=== PATIENT | female | born 1965 | race Caucasian/White ===

== ENCOUNTER → 2021-09-05 | Outpatient (CLI) | payer OTHER | END | disposition home or self-care (01) | LOC: LABWHC1 16:23 | PROVIDERS: ATTEND Family Medicine | DX: Z20.822 Contact with and (suspected) exposure to COVID-19 (principal) | CPT/HCPCS: U0003; C9803; U0005 ==

== ENCOUNTER 2022-05-09 16:54 | Emergency (ER) | payer OTHER ==
[2022-05-09 17:58] LABS: Basophils # (A) 0.1 k/uL (0-0.2); Basophils % (A) 1 %; Eosinophils # (A) 0.1 k/uL (0-0.7); Eosinophils % (A) 1 %; HCT 43.1 % (34.0-46.0); HGB 14.4 gm/dL (11.4-16.0); Lymphocytes # (A) 0.9 k/uL (1.0-4.8); Lymphocytes % (A) 9 %; MCH 34.2 pg (25.0-35.0); MCHC 33.4 g/dL (31.0-37.0); MCV 102.6 fL (80.0-100.0); Macrocytosis Slight; Mean Platelet Volume 8.1; Monocytes # (A) 0.3 k/uL (0-1.0); Monocytes % (A) 4 %; Neutrophils # (A) 7.7 k/uL (1.3-7.7); Neutrophils % (A) 85 %; Platelet Count 136 k/uL (150-450); RBC 4.19 m/uL (3.80-5.40); RDW 12.4 % (11.5-15.5); WBC 9.1 k/uL (3.8-10.6)
[2022-05-09 18:15] LABS: Prothrombin Time 10.7 sec (9.0-12.0)
[2022-05-09 18:16] LABS: Partial Thromboplastin Time 21.3 sec (22.0-30.0)
[2022-05-09 18:20] VITALS: BP 132/96; PULSE 123; RESP 18; TEMP 98.2
[2022-05-09 18:22] LABS: ALT 14 U/L (4-34); AST 25 U/L (14-36); Acetaminophen <10.0 ug/mL; African American GFR (CKD) >90 (>60 ml/min/1.73 sqM); Albumin 4.2 g/dL (3.5-5.0); Alcohol <10 mg/dL; Alkaline Phosphatase 97 U/L (38-126); Anion Gap 7 mmol/L; Blood Urea Nitrogen 9 mg/dL (7-17); Calcium 8.7 mg/dL (8.4-10.2); Carbon Dioxide 29 mmol/L (22-30); Chloride 96 mmol/L (98-107); Glucose 158 mg/dL (74-99); Non-African American GFR(CKD) >90 (>60 ml/min/1.73 sqM); Potassium 3.5 mmol/L (3.5-5.1); Salicylate <1.0 mg/dL; Sodium 132 mmol/L (137-145); Total Bilirubin 0.9 mg/dL (0.2-1.3)
--- NOTE | 2022-05-09 19:10 | ED ---
Altered Mental Status HPI - General Chief Complaint: Altered Mental Status Stated Complaint: AMS/Seizure Time Seen by Provider: 05/09/22 17:00 Source: patient, family Mode of arrival: EMS Limitations: no limitations - History of Present Illness Initial Comments: 57-year-old female with unknown past medical history presents to the emergency department after she had a seizure at home. Family is at bedside and helps provide history. Patient states that she has a long-standing history of seizures however has never told her children. Children state that they were never aware. They feel that she has become more confused over the past week and today with a witnessed her having 3 seizures. Patient was extremely agitated on scene and did not want to come to the hospital. Patient states that she does not want any life prolonging measures and is a DO NOT RESUSCITATE. She denies any recent illnesses. Patient is alert and oriented 3 however does have some tangential speech. No lateralizing deficits. Remainder of the HPI is limited because the patient's mental condition - Related Data Home Medications Medication Instructions Recorded Confirmed Albuterol Sulfate [Proair Hfa] 2 puff INHALATION RT-Q4H PRN 05/09/22 05/12/22 Atorvastatin [Lipitor] 10 mg PO DAILY 05/09/22 05/12/22 Budesonide 0.5 mg INHALATION RT-BID 05/09/22 05/12/22 Butalbital/Acetaminophen 1 tab PO Q4H PRN 05/09/22 05/12/22 [Butalbital/Acetaminophen 25-325] Ergocalciferol [Vitamin D2 (1250 1,250 mcg PO Q7D 05/09/22 05/12/22 Mcg = 93365 Iu)] Gabapentin 800 mg PO Q8H 05/09/22 05/12/22 LORazepam [Ativan] 2 mg PO Q4H PRN 05/09/22 05/12/22 Lipase/Protease/Amylase [Zenpep Dr 2 cap PO BID PRN 05/09/22 05/12/22 40,000 Unit Capsule] Lipase/Protease/Amylase [Zenpep Dr 2 cap PO TID-W/MEALS 05/09/22 05/12/22 40,000 Unit Capsule] Morphine Sulfate Ir [MSIR] 30 mg PO Q4HR 05/09/22 05/12/22 Morphine Sulfate [Morphine Sulfate 200 mg PO Q12H 05/09/22 05/12/22 ER] Ondansetron Odt [Zofran ODT] 4 mg PO Q4H PRN 05/09/22 05/12/22 Previous Rx's Medication Instructions Recorded Divalproex [Depakote] 500 mg PO BID 30 Days #30 tab 05/16/22 Escitalopram [Lexapro] 10 mg PO DAILY 30 Days #30 tab 05/16/22 Mirtazapine [Remeron] 15 mg PO HS 30 Days #30 tab 05/16/22 Multivitamins, Thera [Multivitamin 1 each PO DAILY@1200 tab 05/16/22 (formulary)] Potassium Chloride ER [K-Dur 20] 40 meq PO DAILY 30 Days #30 tab 05/16/22 Thiamine [Vitamin B-1] 100 mg PO DAILY@1200 tab 05/16/22 Allergies Allergy/AdvReac Type Severity Reaction Status Date / Time Iodinated Contrast Media Allergy Unknown Verified 05/12/22 15:29 duloxetine [From Cymbalta] AdvReac homicidal Verified 05/13/22 12:18 fluticasone furoate AdvReac Swelling Verified 05/13/22 12:18 [From Breo Ellipta] NSAIDS (Non-Steroidal AdvReac Nausea & Verified 05/13/22 12:18 Anti-Inflamma Vomiting tiotropium AdvReac Swelling Verified 05/13/22 12:18 [From Spiriva with HandiHaler] trazodone AdvReac HOMICIDAL Verified 05/13/22 12:18 vilanterol AdvReac Swelling Verified 05/13/22 12:18 [From Breo Ellipta] antidepresents Allergy Unknown Uncoded 05/12/22 14:56 Review of Systems ROS Statement: Those systems with pertinent positive or pertinent negative responses have been documented in the HPI. ROS Other: All systems not noted in ROS Statement are negative. General Exam Limitations: altered mental status General appearance: alert, in no apparent distress, anxious, other (odd behavior) Head exam: Present: atraumatic, normocephalic, normal inspection Eye exam: Present: normal appearance, PERRL, EOMI. Absent: scleral icterus, conjunctival injection, periorbital swelling ENT exam: Present: normal exam, mucous membranes moist Neck exam: Present: normal inspection. Absent: tenderness, meningismus, lymphadenopathy Respiratory exam: Present: normal lung sounds bilaterally. Absent: respiratory distress, wheezes, rales, rhonchi, stridor Cardiovascular Exam: Present: normal rhythm, tachycardia GI/Abdominal exam: Present: soft, normal bowel sounds. Absent: distended, tenderness, guarding, rebound, rigid Neurological exam: Present: alert, oriented X3 Psychiatric exam: Present: anxious, other (tangential speech. hyperverbal) Skin exam: Present: warm, dry, intact, normal color. Absent: rash Course Vital Signs 05/09/22 18:16 Temperature 98.2 F Pulse Rate 123 H Respiratory 18 Rate Blood Pressure 132/96 O2 Sat by Pulse 96 Oximetry Medical Decision Making - Medical Decision Making Upon arrival the patient was placed into room 9. Thorough history and physical exam was performed. I do have several of the patient's family members in the room and I do get a history from all of them. I do begin working the patient up. IV is established laboratory studies are conducted and reviewed. I did request a urine sample however the patient does not provide one. I recommended a CT of the head and neck as well as a chest x-ray. Patient refused these studies as well. Family is at bedside. Oldest daughter states that she does help her mother make medical decisions as she is the next of kin. She agrees with her mother that she does not want any medical treatment at this time and is aware of the risks of possible . Family is aware that the patient will sign out AGAINST MEDICAL ADVICE. Request that she follow up with her own primary care doctor and return for any new or worsening symptoms. Patient discharged home in stable condition - Lab Data Result diagrams: 05/09/22 17:46 05/09/22 17:46 Lab Results 05/09/22 05/09/22 05/09/22 Range/Units 17:46 17:46 17:46 WBC 9.1 (3.8-10.6) k/uL RBC 4.19 (3.80-5.40) m/uL Hgb 14.4 (11.4-16.0) gm/dL Hct 43.1 (34.0-46.0) % MCV 102.6 H (80.0-100.0) fL MCH 34.2 (25.0-35.0) pg MCHC 33.4 (31.0-37.0) g/dL RDW 12.4 (11.5-15.5) % Plt Count 136 L (150-450) k/uL MPV 8.1 Neutrophils % 85 % Lymphocytes % 9 % Monocytes % 4 % Eosinophils % 1 % Basophils % 1 % Neutrophils # 7.7 (1.3-7.7) k/uL Lymphocytes # 0.9 L (1.0-4.8) k/uL Monocytes # 0.3 (0-1.0) k/uL Eosinophils # 0.1 (0-0.7) k/uL Basophils # 0.1 (0-0.2) k/uL Macrocytosis Slight PT 10.7 (9.0-12.0) sec INR 1.0 (<1.2) APTT 21.3 L (22.0-30.0) sec Sodium 132 L (137-145) mmol/L Potassium 3.5 (3.5-5.1) mmol/L Chloride 96 L (98-107) mmol/L Carbon Dioxide 29 (22-30) mmol/L Anion Gap 7 mmol/L BUN 9 (7-17) mg/dL Creatinine 0.33 L (0.52-1.04) mg/dL Est GFR (CKD-EPI)AfAm >90 (>60 ml/min/1.73 sqM) Est GFR (CKD-EPI)NonAf >90 (>60 ml/min/1.73 sqM) Glucose 158 H (74-99) mg/dL Calcium 8.7 (8.4-10.2) mg/dL Total Bilirubin 0.9 (0.2-1.3) mg/dL AST 25 (14-36) U/L ALT 14 (4-34) U/L Alkaline Phosphatase 97 (38-126) U/L Ammonia (<30) umol/L Troponin I (0.000-0.034) ng/mL Total Protein 7.0 (6.3-8.2) g/dL Albumin 4.2 (3.5-5.0) g/dL TSH 0.354 L (0.465-4.680) mIU/L Free T4 2.06 (0.78-2.19) ng/dL Salicylates <1.0 mg/dL Acetaminophen <10.0 ug/mL Serum Alcohol <10 mg/dL 05/09/22 05/09/22 Range/Units 17:46 17:46 WBC (3.8-10.6) k/uL RBC (3.80-5.40) m/uL Hgb (11.4-16.0) gm/dL Hct (34.0-46.0) % MCV (80.0-100.0) fL MCH (25.0-35.0) pg MCHC (31.0-37.0) g/dL RDW (11.5-15.5) % Plt Count (150-450) k/uL MPV Neutrophils % % Lymphocytes % % Monocytes % % Eosinophils % % Basophils % % Neutrophils # (1.3-7.7) k/uL Lymphocytes # (1.0-4.8) k/uL Monocytes # (0-1.0) k/uL Eosinophils # (0-0.7) k/uL Basophils # (0-0.2) k/uL Macrocytosis PT (9.0-12.0) sec INR (<1.2) APTT (22.0-30.0) sec Sodium (137-145) mmol/L Potassium (3.5-5.1) mmol/L Chloride (98-107) mmol/L Carbon Dioxide (22-30) mmol/L Anion Gap mmol/L BUN (7-17) mg/dL Creatinine (0.52-1.04) mg/dL Est GFR (CKD-EPI)AfAm (>60 ml/min/1.73 sqM) Est GFR (CKD-EPI)NonAf (>60 ml/min/1.73 sqM) Glucose (74-99) mg/dL Calcium (8.4-10.2) mg/dL Total Bilirubin (0.2-1.3) mg/dL AST (14-36) U/L ALT (4-34) U/L Alkaline Phosphatase (38-126) U/L Ammonia <9 (<30) umol/L Troponin I 0.030 (0.000-0.034) ng/mL Total Protein (6.3-8.2) g/dL Albumin (3.5-5.0) g/dL TSH (0.465-4.680) mIU/L Free T4 (0.78-2.19) ng/dL Salicylates mg/dL Acetaminophen ug/mL Serum Alcohol mg/dL - EKG Data EKG Comments: EKG demonstrates sinus tachycardia with a rate of 134. CA interval 120. QRS 74. QTC of 382. No acute ST segment elevations or depressions Disposition Clinical Impression: Seizure Disposition: Left Against Medical Advice Condition: Undetermined Instructions (If sedation given, give patient instructions): Generalized Tonic Clonic Seizures (ED) Additional Instructions: I recommended further workup. You are leaving without complete testing being completed. Please return should you agree to further workup Is patient prescribed a controlled substance at d/c from ED?: No Referrals: Jan Giles III, MD [Primary Care Provider] - 1-2 days Time of Disposition: 19:10
[2022-05-09 19:56] LABS: T4, Free (Free Thyroxine) 2.06 ng/dL (0.78-2.19)
== END 2022-05-09 19:59 | disposition left against medical advice (07) ==
LOC: EC 16:54
DX: R56.9 Unspecified convulsions (principal); Z91.041 Radiographic dye allergy status; Z88.8 Allergy status to other drugs, medicaments and biological substances; Z88.6 Allergy status to analgesic agent
CPT/HCPCS: 36415; 93005; 84439; 80053; 84443; 82140; 84484; 85025; 85610; 85730; 80143; 80179; 99285; G0480; 80320

== ENCOUNTER 2022-05-12 14:23 | Inpatient (IN) | payer OTHER ==
[2022-05-12] MEDS ORDERED: LORazepam 2 MG/ML INJ IV STA (14:29)
[2022-05-12] MEDS ORDERED: SODIUM CHLORIDE 0.9% 1,000 ML IV ONE (14:29)
[2022-05-12 15:24] LABS: ALT 15 U/L (4-34); AST 28 U/L (14-36); African American GFR (CKD) >90 (>60 ml/min/1.73 sqM); Albumin 3.6 g/dL (3.5-5.0); Alcohol <10 mg/dL; Alkaline Phosphatase 76 U/L (38-126); Anion Gap 10 mmol/L; Blood Urea Nitrogen 3 mg/dL (7-17); Calcium 8.4 mg/dL (8.4-10.2); Carbon Dioxide 22 mmol/L (22-30); Chloride 101 mmol/L (98-107); Glucose 156 mg/dL (74-99); Non-African American GFR(CKD) >90 (>60 ml/min/1.73 sqM); Potassium 3.1 mmol/L (3.5-5.1); Sodium 133 mmol/L (137-145); Total Bilirubin 0.6 mg/dL (0.2-1.3); Total Protein 6.1 g/dL (6.3-8.2)
[2022-05-12 15:25] LABS: Basophils % (A) 1 %; Eosinophils % (A) 1 %; HCT 41.2 % (34.0-46.0); HGB 13.8 gm/dL (11.4-16.0); Lymphocytes # (A) 0.8 k/uL (1.0-4.8); Lymphocytes % (A) 21 %; MCH 35.5 pg (25.0-35.0); MCHC 33.5 g/dL (31.0-37.0); MCV 106.1 fL (80.0-100.0); Macrocytosis Moderate; Mean Platelet Volume 8.3; Monocytes # (A) 0.1 k/uL (0-1.0); Monocytes % (A) 4 %; Neutrophils # (A) 2.6 k/uL (1.3-7.7); Neutrophils % (A) 72 %; Platelet Count 168 k/uL (150-450); RBC 3.88 m/uL (3.80-5.40); RDW 13.1 % (11.5-15.5); WBC 3.6 k/uL (3.8-10.6)
[2022-05-12 15:38] LABS: Prothrombin Time 10.5 sec (9.0-12.0)
[2022-05-12 15:40] LABS: Partial Thromboplastin Time 21.6 sec (22.0-30.0)
--- NOTE | 2022-05-12 15:41 | XR ---
EXAMINATION TYPE: XR chest 1V portable DATE OF EXAM: 05/12/2022 COMPARISON: NONE HISTORY: Altered mental status TECHNIQUE: Single frontal view of the chest is obtained. FINDINGS: Patient is rotated. There are overlying artifacts. Prominent lung volume may be indicative of underlying COPD. Pulmonary artery shows possible increase in size, consider pulmonary artery hype rtension. Infrahilar nodularity is questioned on the right. Aorta is dense. No evident pneumothorax o r pleural effusion, no evident airspace disease. Heart is normal. IMPRESSION: Rotated exam. The letha appear prominently which may be at least in part due to technique , possible infrahilar region on the consider chest CT
--- NOTE | 2022-05-12 15:54 | CT ---
EXAMINATION TYPE: CT brain wo con DATE OF EXAM: 05/12/2022 COMPARISON: None available HISTORY: ams, seizure CT DLP: 1483.4 mGycm Automated exposure control for dose reduction was used. TECHNIQUE: CT scan of the brain is performed without IV contrast administration. FINDINGS: Artifactual images. No acute intracranial hemorrhage. No gross acute cortical infarct. No midline good ft or herniation. Unremarkable basal cisterns, sella and CP angles. No gross space-occupying lesion, vasogenic edema or mass effect. Unremarkable orbits. Clear visualized paranasal sinuses and mastoid air cells. Unremarkable calvarial bones. Degenerative changes at C4-5 level. IMPRESSION: No acute intracranial abnormality or gross space-occupying lesion by this nonenhanced CT scan. If seizures persist, further MRI assessment should be considered.
[2022-05-12 16:11] LABS: Appearance,Urine Clear (Clear); Bilirubin,Urine Negative (Negative); Blood,Urine Negative (Negative); Color,Urine Yellow; Glucose,Urine (UA) Trace (Negative); Ketones,Urine 1+ (Negative); Leukocyte Esterase,Urine Negative (Negative); Nitrite,Urine Negative (Negative); Protein,Urine Trace (Negative); Specific Gravity,Urine 1.011 (1.001-1.035); Urobilinogen,Urine <2.0 mg/dL (<2.0)
[2022-05-12 16:42] LABS: Amphetamine Screen,Urine Not Detected (NotDetected); Barbiturate Screen,Urine Not Detected (NotDetected); Benzodiazepines Screen,Urine Detected (NotDetected); Cocaine Screen,Urine Not Detected (NotDetected); Methadone Screen, Urine Not Detected (NotDetected); Opiate Screen,Urine Detected (NotDetected); Oxycodone Screen, Urine Not Detected (NotDetected); Phencyclidine Screen,Urine Not Detected (NotDetected); Tricyclic Antidepressant,Urine Not Detected (NotDetected); Urn Cannabinoid Scrn Detected (NotDetected)
[2022-05-12] MEDS ORDERED: NALOXONE 0.4 MG/ML 1 ML VIAL IV PRN (16:42)
--- NOTE | 2022-05-12 16:42 | ED ---
Seizure HPI - General Chief Complaint: Seizure Stated Complaint: Seizure/Withdrawl Time Seen by Provider: 05/12/22 14:26 Source: family, EMS Mode of arrival: EMS Limitations: altered mental status - History of Present Illness Initial Comments: Patient presents after having had a seizure at home. At this time she is altered. She doesn't provide any further information. At the time of mind she'll examination no one else is in attendance to provide further details. - Related Data Home Medications Medication Instructions Recorded Confirmed Albuterol Sulfate [Proair Hfa] 2 puff INHALATION RT-Q4H PRN 05/09/22 05/12/22 Atorvastatin [Lipitor] 10 mg PO DAILY 05/09/22 05/12/22 Budesonide 0.5 mg INHALATION RT-BID 05/09/22 05/12/22 Butalbital/Acetaminophen 1 tab PO Q4H PRN 05/09/22 05/12/22 [Butalbital/Acetaminophen 25-325] Ergocalciferol [Vitamin D2 (1250 1,250 mcg PO Q7D 05/09/22 05/12/22 Mcg = 29136 Iu)] Gabapentin 800 mg PO Q8H 05/09/22 05/12/22 LORazepam [Ativan] 2 mg PO Q4H PRN 05/09/22 05/12/22 Lipase/Protease/Amylase [Zenpep Dr 2 cap PO BID PRN 05/09/22 05/12/22 40,000 Unit Capsule] Lipase/Protease/Amylase [Zenpep Dr 2 cap PO TID-W/MEALS 05/09/22 05/12/22 40,000 Unit Capsule] Morphine Sulfate Ir [MSIR] 30 mg PO Q4HR 05/09/22 05/12/22 Morphine Sulfate [Morphine Sulfate 200 mg PO Q12H 05/09/22 05/12/22 ER] Ondansetron Odt [Zofran Odt] 4 mg PO Q4H PRN 05/09/22 05/12/22 Allergies Allergy/AdvReac Type Severity Reaction Status Date / Time Iodinated Contrast Media Allergy Unknown Verified 05/12/22 15:29 antidepresents Allergy Unknown Uncoded 05/12/22 14:56 Review of Systems ROS Statement: Those systems with pertinent positive or pertinent negative responses have been documented in the HPI. ROS Other: All systems not noted in ROS Statement are negative. Past Medical History Past Medical History: Asthma, Cancer, COPD Additional Past Medical History / Comment(s): Throat cancer, chronic pancreatitis, TIAs History of Any Multi-Drug Resistant Organisms: None Reported Past Surgical History: Orthopedic Surgery Additional Past Surgical History / Comment(s): Throat surgery, "multiple stents in the pancreas" Past Psychological History: Anxiety Smoking Status: Current every day smoker Past Alcohol Use History: Abuse Past Drug Use History: None Reported General Exam Limitations: altered mental status General appearance: obtunded Head exam: Present: atraumatic Eye exam: Present: normal appearance ENT exam: Present: normal exam Neck exam: Present: normal inspection. Absent: meningismus Respiratory exam: Present: normal lung sounds bilaterally. Absent: respiratory distress Cardiovascular Exam: Present: regular rate, normal rhythm GI/Abdominal exam: Present: soft. Absent: tenderness Extremities exam: Absent: tenderness Back exam: Absent: tenderness Neurological exam: Present: altered Psychiatric exam: Present: agitated Skin exam: Present: warm, dry Course Vital Signs 05/12/22 05/12/22 14:48 16:18 Temperature 97.7 F Pulse Rate 98 81 Respiratory 15 14 Rate Blood Pressure 115/85 127/79 O2 Sat by Pulse 98 93 L Oximetry Medical Decision Making - Medical Decision Making Patient presents with altered mental status, new onset seizure disorder as of a couple days ago. Patient remains postictal. She is altered. She will require admission to the hospital. - Lab Data Result diagrams: 05/12/22 14:56 05/12/22 14:56 Lab Results 05/12/22 05/12/22 05/12/22 Range/Units 14:56 14:56 14:56 WBC 3.6 L (3.8-10.6) k/uL RBC 3.88 (3.80-5.40) m/uL Hgb 13.8 (11.4-16.0) gm/dL Hct 41.2 (34.0-46.0) % MCV 106.1 H (80.0-100.0) fL MCH 35.5 H (25.0-35.0) pg MCHC 33.5 (31.0-37.0) g/dL RDW 13.1 (11.5-15.5) % Plt Count 168 (150-450) k/uL MPV 8.3 Neutrophils % 72 % Lymphocytes % 21 % Monocytes % 4 % Eosinophils % 1 % Basophils % 1 % Neutrophils # 2.6 (1.3-7.7) k/uL Lymphocytes # 0.8 L (1.0-4.8) k/uL Monocytes # 0.1 (0-1.0) k/uL Eosinophils # 0.0 (0-0.7) k/uL Basophils # 0.0 (0-0.2) k/uL Macrocytosis Moderate PT 10.5 (9.0-12.0) sec INR 1.0 (<1.2) APTT 21.6 L (22.0-30.0) sec Sodium (137-145) mmol/L Potassium (3.5-5.1) mmol/L Chloride (98-107) mmol/L Carbon Dioxide (22-30) mmol/L Anion Gap mmol/L BUN (7-17) mg/dL Creatinine (0.52-1.04) mg/dL Est GFR (CKD-EPI)AfAm (>60 ml/min/1.73 sqM) Est GFR (CKD-EPI)NonAf (>60 ml/min/1.73 sqM) Glucose (74-99) mg/dL Calcium (8.4-10.2) mg/dL Total Bilirubin (0.2-1.3) mg/dL AST (14-36) U/L ALT (4-34) U/L Alkaline Phosphatase (38-126) U/L Ammonia (<30) umol/L Troponin I (0.000-0.034) ng/mL Total Protein (6.3-8.2) g/dL Albumin (3.5-5.0) g/dL Urine Color Yellow Urine Appearance Clear (Clear) Urine pH 6.0 (5.0-8.0) Ur Specific [place] 1.011 (1.001-1.035) Urine Protein Trace H (Negative) Urine Glucose (UA) Trace H (Negative) Urine Ketones 1+ H (Negative) Urine Blood Negative (Negative) Urine Nitrite Negative (Negative) Urine Bilirubin Negative (Negative) Urine Urobilinogen <2.0 (<2.0) mg/dL Ur Leukocyte Esterase Negative (Negative) Serum Alcohol mg/dL 06/21/22 06/21/22 06/21/22 Range/Units 14:56 14:56 14:56 WBC (3.8-10.6) k/uL RBC (3.80-5.40) m/uL Hgb (11.4-16.0) gm/dL Hct (34.0-46.0) % MCV (80.0-100.0) fL MCH (25.0-35.0) pg MCHC (31.0-37.0) g/dL RDW (11.5-15.5) % Plt Count (150-450) k/uL MPV Neutrophils % % Lymphocytes % % Monocytes % % Eosinophils % % Basophils % % Neutrophils # (1.3-7.7) k/uL Lymphocytes # (1.0-4.8) k/uL Monocytes # (0-1.0) k/uL Eosinophils # (0-0.7) k/uL Basophils # (0-0.2) k/uL Macrocytosis PT (9.0-12.0) sec INR (<1.2) APTT (22.0-30.0) sec Sodium 133 L (137-145) mmol/L Potassium 3.1 L (3.5-5.1) mmol/L Chloride 101 (98-107) mmol/L Carbon Dioxide 22 (22-30) mmol/L Anion Gap 10 mmol/L BUN 3 L (7-17) mg/dL Creatinine 0.30 L (0.52-1.04) mg/dL Est GFR (CKD-EPI)AfAm >90 (>60 ml/min/1.73 sqM) Est GFR (CKD-EPI)NonAf >90 (>60 ml/min/1.73 sqM) Glucose 156 H (74-99) mg/dL Calcium 8.4 (8.4-10.2) mg/dL Total Bilirubin 0.6 (0.2-1.3) mg/dL AST 28 (14-36) U/L ALT 15 (4-34) U/L Alkaline Phosphatase 76 (38-126) U/L Ammonia <9 (<30) umol/L Troponin I <0.012 (0.000-0.034) ng/mL Total Protein 6.1 L (6.3-8.2) g/dL Albumin 3.6 (3.5-5.0) g/dL Urine Color Urine Appearance (Clear) Urine pH (5.0-8.0) Ur Specific [place] (1.001-1.035) Urine Protein (Negative) Urine Glucose (UA) (Negative) Urine Ketones (Negative) Urine Blood (Negative) Urine Nitrite (Negative) Urine Bilirubin (Negative) Urine Urobilinogen (<2.0) mg/dL Ur Leukocyte Esterase (Negative) Serum Alcohol <10 mg/dL Disposition Clinical Impression: New onset seizure Disposition: ADMITTED IP TO THIS [facility] Condition: Fair Instructions (If sedation given, give patient instructions): Seizure/Epilepsy Discharge Instructions & Follow-Up Referrals: Jan Giles III, MD [Primary Care Provider] - 1-2 days
[2022-05-12] MEDS ORDERED: PROTEASE PO PRN (16:44)
[2022-05-12] MEDS ORDERED: ALBUTEROL NEBULIZED 2.5 MG/3 ML INHALATION PRN (16:44)
[2022-05-12] MEDS ORDERED: AMYLASE PO PRN (16:44)
[2022-05-12] MEDS ORDERED: BUTALB/APAP/CAFF 50-325-40MG TAB PO PRN (16:44)
[2022-05-12] MEDS ORDERED: LIPASE PO PRN (16:44)
[2022-05-12 16:48] LABS: Glucose,Whole Blood 99 mg/dL (70-110)
[2022-05-12] MEDS ORDERED: levETIRAcetam IV 1,000 MG in SALINE 1 100ML.BAG IVPB STA (17:33)
[2022-05-12] MEDS ORDERED: PIPERACILLIN-TAZOBACTAM 3.375 GM in SODIUM CHLORIDE 0.9% 100 ML IVPB ONE (17:45)
--- NOTE | 2022-05-12 19:09 | HP ---
HISTORY AND PHYSICAL CHIEF COMPLAINT: Seizure disorder. HISTORY OF PRESENT ILLNESS: This 57-year-old woman with a past medical history of asthma and COPD, being followed Dr. Giles in the outpatient setting, was drinking heavily recently after the patient's 's about a year ago. The patient stopped alcohol suddenly about a week and a half prior and the patient apparently had seizures, generalized tonic-clonic seizures, and was admitted here. But one of the patient's family members signed the patient out of the hospital, and the other two family members who were living with the patient found the patient lying outside and the patient apparently had a seizure while at home. The patient was looking to the left side and started jerking and subsequently had a stiff posture. The patient was taken to [facility]. Currently the patient is postictal, unable to give a coherent history. Most of the history is taken from my discussion with the family members at bedside, the ER physician and review of the chart. The patient also had a CT of the brain which I personally reviewed. It showed no acute abnormality. MRI has been recommended. The patient also had some change in mental status, according to the family. The labs are showing leukopenia and multiple other abnormalities as well, including hypokalemia. Drug screen is positive for marijuana, opiates and benzodiazepines. PAST MEDICAL HISTORY: Past medical history includes asthma, COPD. MEDICATIONS: Home medications are reviewed and include Zofran and morphine sulfate. Doses and other medications are reviewed. ALLERGIES: ALLERGIES include ANTIDEPRESSANTS. Family history, social history, review of systems could not be taken because of the patient's change in mental status. Patient is currently a smoker. PHYSICAL EXAMINATION: Patient is stuporous. Pulse 81, blood pressure 127/70, respiration 14. HEENT: Conjunctivae normal. Oral mucosa moist. NECK: No jugular venous distention. CARDIOVASCULAR: S1, S2 muffled. RESPIRATORY SYSTEM: A few scattered rhonchi and crackles. ABDOMEN: Soft, nontender. LEGS: No edema. No swelling. NERVOUS SYSTEM: The patient is in a contracted position. A detailed exam is not possible at this time. SKIN: No ulcer, rash, bleeding. JOINTS: No active deforming arthropathy. LABS: Reviewed, as mentioned earlier. They include sodium 133, potassium 3.1. The labs are reviewed personally. Chest x-ray also reviewed personally. ASSESSMENT: 1. Recurrent seizures. 2. Prominence in the infrahilar region on the right side. 3. ETOH. 4. History of asthma, chronic obstructive pulmonary disease. 5. History of throat cancer. 6. History of chronic pancreatitis. 7. Hypokalemia. 8. Multiple medical issues. RECOMMENDATIONS AND DISCUSSION: In this 57-year-old woman who presented with multiple complex medical issues, at this time we will monitor the patient closely. I would initiate anti-seizure medications. I would also get a neurology consultation. Otherwise, I would also recommend empiric antibiotics and a CT scan of the chest to rule out the possibility of any primary malignancy or aspiration pneumonia. Other than that, we will monitor. See orders for further details. Prognosis in any case is extremely guarded. MRI also will be ordered. Cultures also will be obtained. A copy of this dictation is being forwarded to Dr. Giles, who is the primary physician. Post-discharge followup such as rehab is also recommended to the family once the patient is improved. Currently patient is seriously sick. MMSOCO / LILIAN: [id number] /
--- NOTE | 2022-05-12 19:38 | CT ---
EXAMINATION TYPE: CT chest wo con DATE OF EXAM: 05/12/2022 COMPARISON: None HISTORY: Aspiration, RT lung nodule. CT DLP: 256.1 mGycm Automated exposure control for dose reduction was used. Images obtained from the thoracic inlet to the diaphragm without contrast. The lungs are clear of consolidation. No pleural effusion. No mediastinal adenopathy. There are no hi lar masses. Heart size is normal. No pericardial effusion. There are bilateral breast implants. The thoracic spine is intact. No significant compression fracture. The sternum is intact. There is sl ight wedging of T6 and T8 and T10 vertebra up to 15%. IMPRESSION: No evidence of a pulmonary mass. No acute lung disease. No suspicious pulmonary mass. Mild thoracic compression deformities probably related to osteoporosis.
[2022-05-12] MEDS: BUDESONIDE 0.5 MG/2 ML NEBU INHALATION SCH (19:58)
[2022-05-12] MEDS: IPRATROPIUM-ALBUTEROL 3 ML NEB INHALATION SCH (19:58)
[2022-05-12] MEDS: GABAPENTIN 400 MG CAP PO SCH (21:24)
[2022-05-12] MEDS: MORPHINE SULFATE IR 15 MG TABLET PO SCH (21:24)
[2022-05-12] MEDS: MORPHINE SULFATE ER 100 MG TABLET PO SCH (21:25)
[2022-05-12] MEDS: LORazepam 2 MG/ML INJ IV PRN (22:56)
[2022-05-12] MEDS: ONDANSETRON ODT 4 MG TAB PO PRN (22:58)
[2022-05-13] MEDS: MORPHINE SULFATE IR 15 MG TABLET PO SCH ×5 (00:49→21:23)
[2022-05-13] MEDS: PIPERACILLIN-TAZOBACTAM 3.375 GM in SODIUM CHLORIDE 0.9% 100 ML IVPB SCH ×3 (00:52→17:28)
[2022-05-13] MEDS ORDERED: levETIRAcetam IV 1,000 MG in SALINE 1 100ML.BAG IVPB SCH (06:00)
[2022-05-13 06:21] LABS: Basophils # (A) 0.1 k/uL (0-0.2); Basophils % (A) 1 %; Eosinophils # (A) 0.1 k/uL (0-0.7); Eosinophils % (A) 1 %; HCT 45.2 % (34.0-46.0); HGB 14.5 gm/dL (11.4-16.0); Lymphocytes # (A) 1.1 k/uL (1.0-4.8); Lymphocytes % (A) 16 %; MCH 34.2 pg (25.0-35.0); MCHC 32.2 g/dL (31.0-37.0); MCV 106.4 fL (80.0-100.0); Macrocytosis Moderate; Mean Platelet Volume 8.2; Monocytes # (A) 0.2 k/uL (0-1.0); Monocytes % (A) 4 %; Neutrophils # (A) 5.3 k/uL (1.3-7.7); Neutrophils % (A) 77 %; Platelet Count 191 k/uL (150-450); RBC 4.24 m/uL (3.80-5.40); RDW 12.4 % (11.5-15.5); WBC 6.9 k/uL (3.8-10.6)
[2022-05-13 06:30] LABS: ALT 16 U/L (4-34); AST 30 U/L (14-36); African American GFR (CKD) >90 (>60 ml/min/1.73 sqM); Alkaline Phosphatase 83 U/L (38-126); Anion Gap 9 mmol/L; Blood Urea Nitrogen 5 mg/dL (7-17); Calcium 9.1 mg/dL (8.4-10.2); Carbon Dioxide 27 mmol/L (22-30); Chloride 100 mmol/L (98-107); Glucose 112 mg/dL (74-99); Non-African American GFR(CKD) >90 (>60 ml/min/1.73 sqM); Potassium 3.1 mmol/L (3.5-5.1); Sodium 136 mmol/L (137-145); Total Protein 6.8 g/dL (6.3-8.2)
[2022-05-13] MEDS: BUDESONIDE 0.5 MG/2 ML NEBU INHALATION SCH ×2 (07:03→20:00)
[2022-05-13] MEDS: IPRATROPIUM-ALBUTEROL 3 ML NEB INHALATION SCH ×4 (07:04→20:00)
[2022-05-13] MEDS: GABAPENTIN 400 MG CAP PO SCH ×3 (07:14→21:24)
[2022-05-13] MEDS: LORazepam 2 MG/ML INJ IV PRN ×2 (07:31→19:12)
[2022-05-13] MEDS: LIPASE PO SCH ×2 (08:48→15:56)
[2022-05-13] MEDS: AMYLASE PO SCH ×2 (08:48→15:56)
[2022-05-13] MEDS: PROTEASE PO SCH ×2 (08:48→15:56)
[2022-05-13] MEDS: ATORVASTATIN 10 MG TAB PO SCH (10:09)
[2022-05-13] MEDS: MORPHINE SULFATE ER 100 MG TABLET PO SCH ×2 (10:10→21:21)
[2022-05-13] MEDS: ONDANSETRON ODT 4 MG TAB PO PRN ×2 (11:05→15:24)
--- NOTE | 2022-05-13 11:48 | P.CNNES ---
History of Present Illness Consult date: 05/13/22 Requesting physician: Cesario De Guzman Reason for Consult: seizure History of Present Illness: This is a 57-year-old woman with history of depression, chronic alcohol use, tobacco use who presented to our emergency for seizure-like activity. Patient is confused and unable to provide accurate history. History is obtained from the patient's sister was at bedside. The patient's sister stated that the patient does not have history of seizures but the patient has a stopped drinking alcohol on May 05 of this year cold turkey. And since possibly Wednesday she's been having seizure-like activity witnessed by her daughter who recently resides with her. Unknown the description of seizures and how long they lasted for since daughter is not available. It seems that the patient has history of heavy alcohol use on a daily basis but has adequate on May 05 of this year. Patient has had depression since the loss of her according to her sister. Some other workup in our facility during this hospital visit consisted of: Patient is afebrile Patient initial white blood cell is 3.62 thousand and repeat is 6.9. MCV is 106 and the repeated is 106. Sodium is 133, potassium 3.1. AST and ALT is within normal limits. Ammonia is within normal limits. Urinalysis is negative for urinary tract infection. Urine drug screen is positive for opiates, benzoyl and marijuana. Serum alcohol was less than 10. CT of the head is reported as no acute intracranial abnormality or gross space occupying lesion by this nonenhanced computed tomography scan. I personally reviewed the CT of the head and agree with the report. Review of Systems Review of system is limited by the per positive and negative as per HPI. Past Medical History Past Medical History: Asthma, Cancer, COPD Additional Past Medical History / Comment(s): Throat cancer, chronic pancreatitis, TIAs History of Any Multi-Drug Resistant Organisms: None Reported Past Surgical History: Orthopedic Surgery Additional Past Surgical History / Comment(s): Throat surgery, "multiple stents in the pancreas" Past Psychological History: Anxiety Smoking Status: Current every day smoker Past Alcohol Use History: Abuse Past Drug Use History: None Reported Medications and Allergies Home Medications Medication Instructions Recorded Confirmed Type Albuterol Sulfate [Proair Hfa] 2 puff INHALATION RT-Q4H PRN 05/09/22 05/12/22 History Atorvastatin [Lipitor] 10 mg PO DAILY 05/09/22 05/12/22 History Budesonide 0.5 mg INHALATION RT-BID 05/09/22 05/12/22 History Butalbital/Acetaminophen 1 tab PO Q4H PRN 05/09/22 05/12/22 History [Butalbital/Acetaminophen 25-325] Ergocalciferol [Vitamin D2 (1250 1,250 mcg PO Q7D 05/09/22 05/12/22 History Mcg = 84070 Iu)] Gabapentin 800 mg PO Q8H 05/09/22 05/12/22 History LORazepam [Ativan] 2 mg PO Q4H PRN 05/09/22 05/12/22 History Lipase/Protease/Amylase [Zenpep Dr 2 cap PO BID PRN 05/09/22 05/12/22 History 40,000 Unit Capsule] Lipase/Protease/Amylase [Zenpep Dr 2 cap PO TID-W/MEALS 05/09/22 05/12/22 History 40,000 Unit Capsule] Morphine Sulfate Ir [MSIR] 30 mg PO Q4HR 05/09/22 05/12/22 History Morphine Sulfate [Morphine Sulfate 200 mg PO Q12H 05/09/22 05/12/22 History ER] Ondansetron Odt [Zofran Odt] 4 mg PO Q4H PRN 05/09/22 05/12/22 History Allergies Allergy/AdvReac Type Severity Reaction Status Date / Time Iodinated Contrast Media Allergy Unknown Verified 05/12/22 15:29 antidepresents Allergy Unknown Uncoded 05/12/22 14:56 Physical Examination - Vital Signs Vital Signs: Vital Signs Temp Pulse Resp BP Pulse Ox 05/13/22 09:58 86 18 130/76 97 05/13/22 07:32 76 18 136/91 99 05/13/22 07:02 78 18 148/94 97 05/13/22 04:43 82 16 125/106 97 05/12/22 22:59 76 16 120/92 98 05/12/22 20:15 90 05/12/22 19:58 81 05/12/22 19:38 75 14 155/109 100 05/12/22 18:41 77 14 143/89 95 05/12/22 16:18 81 14 127/79 93 L 05/12/22 14:48 97.7 F 98 15 115/85 98 GENERAL: The patient is lying in bed and is not in acute distress. CHEST: The heart rate is regular rate rhythm. No murmurs to auscultation. LUNG: Clear to auscultation bilaterally no wheezing noted throughout. Not labored breathing. ABDOMEN/GI: Bowel sounds present in all 4 quadrants. No tenderness to palpation throughout. NEUROLOGICAL: Higher mental function: The patient is awake, alert, oriented to self. Stated the month correctly but did not know year. Stated she was in the hospital. She was able to identify objects (pen, watch). Was following some simple commands but needed direction. Was talking tangential and seemed more wernicke at times. No neglect. Cranial nerves: The pupils are round, equal and reactive to light. Visual rivera are full to confrontation throughout. Extraocular movement is intact no nystagmus is noted. Facial sensation is hard to assess. The facial strength is normal throughout. Tongue is midline and moved [id number] without any difficulty. No dysarthria is noted. Shoulder shrug is normal bilaterally. Motor: The strength is 5 over 5 throughout. Normal tone and bulk. Cerebellum: Hard to assess because of her cooperation. Sensation: Unable to assess because of inconsistency. Reflexes (right/left): 1+ throughout. Plantars are mute bilaterally. Results - Laboratory Findings CBC and BMP: 05/13/22 05:36 05/13/22 05:36 Abnormal Lab Findings: Abnormal Labs 05/12/22 05/12/22 05/12/22 14:56 14:56 14:56 WBC 3.6 L MCV 106.1 H MCH 35.5 H Lymphocytes # 0.8 L APTT 21.6 L Sodium Potassium BUN Creatinine Glucose Total Protein Urine Protein Urine Glucose (UA) Urine Ketones Urine Opiates Screen Detected H U Benzodiazepines Scrn Detected H U Marijuana (THC) Screen Detected H 05/12/22 05/12/22 05/13/22 14:56 14:56 05:36 WBC MCV 106.4 H MCH Lymphocytes # APTT Sodium 133 L Potassium 3.1 L BUN 3 L Creatinine 0.30 L Glucose 156 H Total Protein 6.1 L Urine Protein Trace H Urine Glucose (UA) Trace H Urine Ketones 1+ H Urine Opiates Screen U Benzodiazepines Scrn U Marijuana (THC) Screen 05/13/22 05:36 WBC MCV MCH Lymphocytes # APTT Sodium 136 L Potassium 3.1 L BUN 5 L Creatinine 0.38 L Glucose 112 H Total Protein Urine Protein Urine Glucose (UA) Urine Ketones Urine Opiates Screen U Benzodiazepines Scrn U Marijuana (THC) Screen Assessment and Plan Assessment: New onset seizure (seizure-like episode witnessed by daughter). Seems due to alcohol withdrawal. Stopped drinking alcohol since May 05 2022. Rule out true epileptic seizures. Encephalopathy of unknown etiology but possibly component of Wernicke-Korsakoff due to her alcohol use. Chronic alcohol use Tobacco use Depression Plan: I ordered an urgent EEG. Started the patient on Depakote 500mg 1 tab bid in mean time. Depakote helps with mood and has antiepileptic effect. In the ED the patient was given loading dose of Keppra 1 g and was started on 1 g every 12 hours by primary which I stopped (because can worsens her mood/behavior). Ordered MRI of the brain with and without. Ordered TSH, vitamin B12, folate, thiamine level. I started the patient on thiamine IV 100 mg for next 3 days and after that by mouth. Every 4 hours neuro checks Seizure precautions seizure pads are ordered. We'll defer the rest of the medical management to the primary team. The plan is discussed with the patient's sister was at bedside Thank you for the consultation. Jesse No M.D. next under hospitalist Time with Patient: Greater than 30
[2022-05-13] MEDS: ALPRAZolam 0.25 MG TAB PO PRN (12:59)
[2022-05-13 13:06] LABS: T4, Free (Free Thyroxine) 2.36 ng/dL (0.78-2.19)
--- NOTE | 2022-05-13 15:15 | EEG ---
ELECTROENCEPHALOGRAM REPORT DATE OF SERVICE: 05/13/2022 CLINICAL HISTORY: This is a 57-year-old woman who presented to the emergency department because of repeated seizure-like activity by family members. The video EEG is obtained to evaluate for seizure epileptiform activity. RELEVANT MEDICATIONS: Ativan and Keppra. EEG TYPE: A routine 21 channel EEG is performed with video using the 10/20 electrode placement system. DESCRIPTION: Wakefulness is only obtained. During the awake state the posterior-dominant rhythm consists of 9-10 hertz activity that is well modulated and well sustained. There is no physiological sleep architecture seen. There is no focal slowing. There is diffuse excessive beta activity seen during the study. There is mild to moderate diffuse myogenic artifact. Interictal and ictal is none. ACTIVATION PROCEDURE: Photic stimulation and hyperventilation are not performed. CLINICAL INTERPRETATION: This is an abnormal routine EEG. The excessive beta activity is likely due to medication effect (Ativan). Otherwise there is no focal slowing, epileptiform discharges or seizure on the EEG. Clinical correlation is recommended. MMSOCO / LILIAN: [id number] / CHELSEA
[2022-05-13] MEDS: ZENPEP 40000 UNIT PO PRN (15:24)
[2022-05-13 15:27] VITALS: BMI 16.2
--- NOTE | 2022-05-13 16:05 | PN ---
PROGRESS NOTE DATE OF SERVICE: 05/13/2022 This 57-year-old woman who was admitted with recurrent seizures also had a history of alcoholism also. The patient had a history of noncompliance. The patient recently went AMA. A chest CT was also done which showed no evidence of pulmonary mass. Mild thoracic compression deformity is also noted. The patient is on empiric antibiotics for risk of aspiration. Patient obtunded yesterday, slightly more alert today. Past medical history reviewed. REVIEW OF SYSTEMS: Fourteen point review of systems negative except as mentioned earlier. CURRENT MEDICATIONS: Reviewed and include: Ventolin, DuoNeb, Keppra. Rest of the medication and doses reviewed. PHYSICAL EXAMINATION: Pulse is 86, blood pressure 137/74. respiration 18. Chest: Clear to auscultation. Neck is no jugular venous distention. Cardiovascular: S1, S2 normal. Abdomen: Soft. Nervous system: Diffusely weak. LABS: Platelets 106, sodium 130, potassium 3.1. ASSESSMENT: 1. Acute recurrent seizures. 2. Prominence infrahilar region, possible aspiration pneumonia. 3. History of ETOH. 4. Asthma/chronic obstructive pulmonary disease. 5. History of throat cancer. 6. History of chronic pancreatitis. 7. Hypokalemia. 8. Multiple medical issues. RECOMMENDATIONS AND DISCUSSION: Recommend to continue current medications, management and symptomatic treatment. Continue empiric antibiotics. Continue with the plan for further neurological workup. Otherwise CT brain noted. Guarded prognosis, alcohol rehab, PT/OT evaluation. Supplement vitamins. Further recommendations to follow. DT precautions. MMODL / IJN: [id number] /
[2022-05-13] MEDS: THIAMINE 100 MG/ML 2 ML VIAL IVP SCH (17:29)
[2022-05-13] MEDS: NICOTINE 21MG/24HR PATCH TRANSDERM SCH (17:44)
[2022-05-13] MEDS: ZENPEP 40000 UNIT PO SCH (18:56)
[2022-05-13] MEDS: DIVALPROEX 500 MG TABLET.DR PO SCH (21:24)
[2022-05-14] MEDS: ALPRAZolam 0.25 MG TAB PO PRN ×2 (00:10→17:11)
[2022-05-14] MEDS: MORPHINE SULFATE IR 15 MG TABLET PO SCH ×6 (00:10→20:54)
[2022-05-14] MEDS: PIPERACILLIN-TAZOBACTAM 3.375 GM in SODIUM CHLORIDE 0.9% 100 ML IVPB SCH ×3 (00:11→17:11)
[2022-05-14] MEDS: LORazepam 2 MG/ML INJ IV PRN (01:33)
[2022-05-14] MEDS: GABAPENTIN 400 MG CAP PO SCH ×3 (04:38→20:53)
[2022-05-14] MEDS: ATORVASTATIN 10 MG TAB PO SCH (08:34)
[2022-05-14] MEDS: ZENPEP 40000 UNIT PO SCH ×3 (08:35→17:21)
[2022-05-14] MEDS: DIVALPROEX 500 MG TABLET.DR PO SCH ×2 (08:35→20:53)
[2022-05-14] MEDS: NICOTINE 21MG/24HR PATCH TRANSDERM SCH (08:37)
[2022-05-14] MEDS: IPRATROPIUM-ALBUTEROL 3 ML NEB INHALATION SCH ×4 (09:09→20:15)
[2022-05-14] MEDS: BUDESONIDE 0.5 MG/2 ML NEBU INHALATION SCH ×2 (09:09→20:15)
[2022-05-14] MEDS ORDERED: LORazepam 0.5 MG TAB PO PRN (10:02)
[2022-05-14 10:04] LABS: Basophils # (A) 0.1 k/uL (0-0.2); Basophils % (A) 1 %; Eosinophils # (A) 0.2 k/uL (0-0.7); Eosinophils % (A) 3 %; HCT 44.3 % (34.0-46.0); HGB 14.4 gm/dL (11.4-16.0); Lymphocytes # (A) 3.2 k/uL (1.0-4.8); Lymphocytes % (A) 42 %; MCH 34.7 pg (25.0-35.0); MCHC 32.6 g/dL (31.0-37.0); MCV 106.5 fL (80.0-100.0); Macrocytosis Slight; Mean Platelet Volume 7.8; Monocytes # (A) 0.3 k/uL (0-1.0); Monocytes % (A) 4 %; Neutrophils # (A) 3.8 k/uL (1.3-7.7); Neutrophils % (A) 49 %; Platelet Count 174 k/uL (150-450); RBC 4.16 m/uL (3.80-5.40); RDW 12.4 % (11.5-15.5); WBC 7.7 k/uL (3.8-10.6)
--- NOTE | 2022-05-14 10:30 | P.PN ---
Subjective Progress Note Date: 05/14/22 The patient is seen at bedside and no further seizure-like activity. Patient feels she is doing drastically better today compared to yesterday. Pending MRI Brain. Objective - Vital Signs Vital signs: Vital Signs Temp 98.0 F 05/14/22 08:37 Pulse 85 05/14/22 09:26 Resp 18 05/14/22 08:37 BP 113/64 05/14/22 08:37 Pulse Ox 93 L 05/14/22 09:09 FiO2 Intake & Output 05/13/22 05/14/22 05/14/22 18:59 06:59 18:59 Intake Total 120 540 Output Total 300 Balance -180 540 Weight 44.452 kg Intake: Oral 120 540 Output: Urine 300 Other: Voiding Method External Catheter Diaper Diaper # Voids 1 # Bowel Movements 1 - Exam GENERAL: The patient is lying in bed and is not in acute distress. PSYCH: Tangential. NEUROLOGICAL: Higher mental function: The patient is awake, alert, oriented to self, place. She correctly answered the year but did not know the month. Patient is following simple commands. No aphasia and no neglect. Cranial nerves: The pupils are round, equal and reactive to light. Visual rivera are full to confrontation throughout. Extraocular movement is intact no nystagmus is noted. Facial sensation is normal to touch throughout. The facial strength is normal throughout. Tongue is midline and moved [id number] without any difficulty. No dysarthria is noted. Shoulder shrug is normal bilaterally. Motor: The strength is 5 over 5 throughout. Normal tone and bulk. Cerebellum: Normal finger to nose bilaterally. Sensation: Sensation is normal to touch throughout. Some other workup in our facility during this hospital visit consisted of: TSH is 0.055 but the free T4 is 2.36 Vitamin B12 is 625 Ammonia level is less than 9. Urinalysis is negative for urinary tract infection. Urine drug screen is positive for opiates, benzoyl and marijuana. Serum alcohol was less than 10. CT of the head is reported as no acute intracranial abnormality or gross space occupying lesion by this nonenhanced computed tomography scan. I personally reviewed the CT of the head and agree with the report. Routine EEG is abnormal. The excessive beta activity is likely due to medication effect (Ativan). Otherwise, there is no focal slowing, epileptiform discharges or seizure on the EEG. - Labs CBC & Chem 7: 05/14/22 09:33 05/13/22 05:36 Labs: Abnormal Lab Results - Last 24 Hours (Table) 05/13/22 05/14/22 Range/Units 05:36 09:33 MCV 106.5 H (80.0-100.0) fL TSH 0.055 L (0.465-4.680) mIU/L Free T4 2.36 H (0.78-2.19) ng/dL Microbiology - Last 24 Hours (Table) 05/12/22 18:26 Blood Culture - Preliminary Blood No Growth after 24 hours Assessment and Plan Assessment: New onset seizure (seizure-like episode witnessed by daughter). Seems due to alcohol withdrawal. Stopped drinking alcohol since May 05 2022. Encephalopathy of unknown etiology but possibly component of Wernicke-Korsakoff due to her alcohol use---seems today is better. Chronic alcohol use Tobacco use Depression Anxiety Plan: Continue Depakote 500mg 1 tab bid in mean time. Depakote helps with mood and has antiepileptic effect. MRI of the brain with and without: pending. folate, thiamine level: pending. Continue thiamine IV 100 mg for next 2 days and after that by mouth. Seizure the patient has abnormal TSH with free T4 level and will defer the management to the primary team Every 4 hours neuro checks Seizure precautions seizure pads are ordered. Patient has significant depression and anxiety consider psychiatry consultation and if not inpatient consider outpatient. We'll defer the rest of the medical management to the primary team. The plan is discussed with the patient and her nurse. Jesse No M.D. Neuro-Hospitalist Time with Patient: Less than 30
[2022-05-14 10:47] LABS: ALT 14 U/L (4-34); African American GFR (CKD) >90 (>60 ml/min/1.73 sqM); Albumin 3.7 g/dL (3.5-5.0); Anion Gap 10 mmol/L; Blood Urea Nitrogen 7 mg/dL (7-17); Carbon Dioxide 31 mmol/L (22-30); Chloride 94 mmol/L (98-107); Glucose 98 mg/dL (74-99); Non-African American GFR(CKD) >90 (>60 ml/min/1.73 sqM); Sodium 135 mmol/L (137-145); Total Bilirubin 0.9 mg/dL (0.2-1.3); Total Protein 6.6 g/dL (6.3-8.2)
[2022-05-14 10:50] LABS: AST 28 U/L (14-36); Alkaline Phosphatase 73 U/L (38-126); Potassium 3.2 mmol/L (3.5-5.1)
[2022-05-14] MEDS: MULTIVITAMINS, THERA 1 EACH TAB PO SCH (11:45)
[2022-05-14] MEDS: THIAMINE 100 MG TAB PO SCH (11:45)
[2022-05-14] MEDS: THIAMINE 100 MG/ML 2 ML VIAL IVP SCH (11:45)
[2022-05-14] MEDS: MORPHINE SULFATE ER 100 MG TABLET PO SCH ×2 (11:45→20:53)
[2022-05-14] MEDS: ZENPEP 40000 UNIT PO PRN (11:46)
[2022-05-14] MEDS ORDERED: Potassium Replacement Protocol 1 EACH MISC MISCELLANE PRN (12:03)
[2022-05-14] MEDS: POTASSIUM CHLORIDE ER 20 MEQ TAB.ER PO SCH ×2 (14:26)
--- NOTE | 2022-05-14 19:15 | PN ---
PROGRESS NOTE DATE OF SERVICE: 05/14/2022 This 57-year-old woman who was admitted with recurrent seizures is being closely monitored. No chest pain. No palpitations. No fever. PHYSICAL EXAMINATION: Pulse is 76, blood pressure 90/56, respiration 18. CHEST: Clear to auscultation. ABDOMEN: Soft. NERVOUS SYSTEM: No focal deficit. Patient is mildly confused. LABS: Reviewed. Sodium ntd. Potassium 3.2. ASSESSMENT: 1. Acute recurrent seizures. 2. Prominent infrahilar region; possible aspiration pneumonia. 3. History of ETOH. 4. Asthma, chronic obstructive pulmonary disease. 5. History of throat cancer. 6. Multiple medical issues. RECOMMENDATIONS AND DISCUSSION: I recommend to continue current medications, continue with the monitoring, symptomatic treatment. Otherwise at this time I recommend potassium supplementation. Continue the antibiotics. Continue with Ativan p.r.n. Guarded prognosis. Further recommendations to follow. Follow closely with Neurology. MMFRANCISCOL / LILIAN: [id number] / MTDD
[2022-05-15] MEDS: PIPERACILLIN-TAZOBACTAM 3.375 GM in SODIUM CHLORIDE 0.9% 100 ML IVPB SCH ×5 (00:39→23:51)
[2022-05-15] MEDS: MORPHINE SULFATE IR 15 MG TABLET PO SCH ×7 (01:27→23:51)
[2022-05-15] MEDS: LORazepam 2 MG/ML INJ IV PRN ×2 (03:06→10:22)
[2022-05-15] MEDS: GABAPENTIN 400 MG CAP PO SCH ×3 (05:44→20:41)
[2022-05-15] MEDS: ZENPEP 40000 UNIT PO PRN ×2 (06:41→06:54)
[2022-05-15] MEDS ORDERED: LORazepam 2 MG/ML INJ IV STA (06:42)
[2022-05-15] MEDS: ALPRAZolam 0.25 MG TAB PO PRN ×2 (06:45→23:51)
[2022-05-15] MEDS: ZENPEP 40000 UNIT PO SCH ×3 (07:16→16:44)
[2022-05-15] MEDS: IPRATROPIUM-ALBUTEROL 3 ML NEB INHALATION SCH ×4 (08:17→19:40)
[2022-05-15] MEDS: BUDESONIDE 0.5 MG/2 ML NEBU INHALATION SCH ×2 (08:18→19:40)
[2022-05-15] MEDS ORDERED: ERGOCALCIFEROL 1,250 MCG (50,000 IU) CAPSULE PO SCH (09:00)
[2022-05-15] MEDS: DIVALPROEX 500 MG TABLET.DR PO SCH ×2 (10:29→20:41)
--- NOTE | 2022-05-15 11:26 | MR ---
EXAMINATION TYPE: MR brain wo/w con DATE OF EXAM: 05/15/2022 11:19 AM COMPARISON: NONE HISTORY: AMS, Seizure, Possible Korskoff CONTRAST: Patient received 4.5 mL intravenous Gadavist gadolinium contrast. Multiplanar and multispin-echo imaging of the brain was performed . Pre and post contrast enhanced i mages are obtained. The ventricles, basal cisterns and sulci overlying the cerebral convexities are minimally enlarged. There is evidence of mild periventricular white matter ischemic demyelination. Approximately 3 foci of increased signal within the centrum semioval bilaterally one on the left and 2 on the right are nonspecific and may reflect chronic small vessel ischemic change, sequela of chron ic migraine headaches, Lyme's disease or demyelination. No additional abnormal foci are seen at this time. No acute edema is seen on diffusion weighted imaging. There is no evidence for midline shift or mass effect. Acute intracranial hemorrhage or extra-axial collection is not evident. No enhancing lesions are seen. The paranasal sinuses and mastoid air cells are well-aerated. IMPRESSION: Age-related atrophic and chronic small vessel ischemic change. No acute intracranial process at this time. No enhancing lesions are seen. Nonspecific white matter changes.
--- NOTE | 2022-05-15 11:38 | P.PN ---
Subjective Progress Note Date: 05/15/22 The patient is seen at bedside and no further seizures per nurse. Per nurse, patient has pressured speech and when she does has stutters but when slows down no difficulty speaking. Otherwise no other neurological deficits. Patient feels she is doing well and pending MRI Brain. Objective - Vital Signs Vital signs: Vital Signs Temp 97.8 F 05/15/22 10:24 Pulse 74 05/15/22 10:24 Resp 16 05/15/22 10:24 BP 144/98 05/15/22 10:24 Pulse Ox 98 05/15/22 10:24 FiO2 Intake & Output 05/14/22 05/15/22 05/15/22 18:59 06:59 18:59 Intake Total 560 Output Total 400 Balance 160 Intake: Oral 560 Output: Urine 400 Other: Voiding Method Diaper Toilet # Voids 1 # Bowel Movements 1 - Exam GENERAL: The patient is lying in bed and is not in acute distress. PSYCH: Tangential. NEUROLOGICAL: Higher mental function: The patient is awake, alert, oriented to self, place. She correctly answered the year but did not know the month. Patient is following simple commands. No aphasia and no neglect. Cranial nerves: The pupils are round, equal and reactive to light. Visual rivera are full to confrontation throughout. Extraocular movement is intact no nystagmus is noted. Facial sensation is normal to touch throughout. The facial strength is normal throughout. Tongue is midline and moved [id number] without any difficulty. No dysarthria is noted. Shoulder shrug is normal bilaterally. Motor: The strength is 5 over 5 throughout. Normal tone and bulk. Cerebellum: Normal finger to nose bilaterally. Sensation: Sensation is normal to touch throughout. Some other workup in our facility during this hospital visit consisted of: TSH is 0.055 but the free T4 is 2.36 Vitamin B12 is 625 Serum Folate: 6.80 RBC folate is 385 Ammonia level is less than 9. Urinalysis is negative for urinary tract infection. Urine drug screen is positive for opiates, benzoyl and marijuana. Serum alcohol was less than 10. CT of the head is reported as no acute intracranial abnormality or gross space occupying lesion by this nonenhanced computed tomography scan. I personally reviewed the CT of the head and agree with the report. Routine EEG is abnormal. The excessive beta activity is likely due to medication effect (Ativan). Otherwise, there is no focal slowing, epileptiform discharges or seizure on the EEG. - Labs CBC & Chem 7: 05/14/22 09:33 05/14/22 09:33 Labs: Microbiology - Last 24 Hours (Table) 05/12/22 18:26 Blood Culture - Preliminary Blood No Growth after 48 hours Assessment and Plan Assessment: New onset seizure (seizure-like episode witnessed by daughter). Seems due to alcohol withdrawal. Stopped drinking alcohol since May 05 2022. Encephalopathy of unknown etiology but possibly component of Wernicke-Korsakoff due to her alcohol use---improved Chronic alcohol use Tobacco use Depression Anxiety Plan: Continue Depakote 500mg 1 tab bid in mean time. Depakote helps with mood and has antiepileptic effect. MRI of the brain with and without: It is reported as age-related atrophic and chronic small vessel ischemic change. No acute intracranial process seen at this time. No enhancing lesions are seen. Nonspecific white matter changes. I personally reviewed MRI and agree with report. Pending thiamine level. On thiamine IV 100 mg and will stop it and to continue on PO (started by primary team). Seizure the patient has abnormal TSH with free T4 level and will defer the management to the primary team Every 4 hours neuro checks Seizure precautions seizure pads are ordered. Patient has significant depression and anxiety: Psychiatry is consulted. Patient still grieving loss of her . We'll defer the rest of the medical management to the primary team. Patient to follow-up with a neurologist as outpatient within 1-2 weeks. The plan is discussed with the patient and her nurse. There is no further neurological work-up and patient is clear for discharge. Jesse No M.D. Neuro-Hospitalist Time with Patient: Less than 30
[2022-05-15] MEDS: NICOTINE 21MG/24HR PATCH TRANSDERM SCH (12:12)
[2022-05-15] MEDS: POTASSIUM CHLORIDE ER 20 MEQ TAB.ER PO SCH (12:13)
[2022-05-15] MEDS: ATORVASTATIN 10 MG TAB PO SCH (12:13)
[2022-05-15] MEDS: THIAMINE 100 MG TAB PO SCH (12:22)
[2022-05-15] MEDS: MULTIVITAMINS, THERA 1 EACH TAB PO SCH (12:22)
[2022-05-15] MEDS: MORPHINE SULFATE ER 100 MG TABLET PO SCH ×2 (12:26→20:48)
[2022-05-15] MEDS: THIAMINE 100 MG/ML 2 ML VIAL IVP SCH (12:33)
--- NOTE | 2022-05-15 16:15 | P.CN ---
Psychiatric Consult - . Consult date: 05/15/22 Consult:: 05/15/22 15:17 IDENTIFYING DATA: This patient is a 57-year-old female who currently lives in a house, she is and has 4 daughters. REASON FOR REFERRAL: Psychiatry was consulted for anxiety, grieving loss of . HISTORY OF PRESENT ILLNESS: The patient presented to the hospital on 05/12 after a seizure at home. Patient apparently came an altered mental status. Neurology has been following along. Patient's urinalysis was negative and urine drug screen was positive for benzodiazepines and marijuana and opiates. Patient's blood alcohol level was negative on admission. Patient's computed tomography scan of her brain did not reveal any acute changes. Patient was seen today at the bedside and agreeable sphincter filing writer. She was waking up from her sleep and was confused at first. She was slow to respond early in the interview however gradually progressed. She claims that she is going to a "rough time" and began seeing about her of 35 years. She states that he from liver disease and she has been having difficult with cope with it. She claims that she has been tearful most at times crying at home. She claims that he years ago. She states that she is also upset and has been having poor sleep and appetite. She claims that she is not feeling suicidal and does not want to join him. . At this time patient denies any suicidal or homical ideations, intent or plan. Patient denies any auditory, visual hallucinations and denies any paranoia or delusions. Patients admits to using cigarettes only however and urine drug screen was positive for benzodiazepines and marijuana and opiates. PAST PSYCHIATRIC HISTORY: Patient has a a history of anxiety and depression. Patient is taking Xanax at this time and Depakote 500 mg twice a day. Patient denies any previous psychiatric hospitalizations. Patient denies any psychiatric outpatient follow-up. Patient denies any history of suicide attempts in the past. Past Medical History: Asthma, Cancer, COPD Additional Past Medical History / Comment(s): Throat cancer, chronic pancreatitis, TIAs ALLERGIES: as per EMR. CHEMICAL DEPENDENCY HISTORY: as per HPI. FAMILY PSYCHIATRIC/SUBSTANCE USE HISTORY: denies SOCIAL HISTORY: Patient was born and raised in claims that she grew up in [place] and also [place]. She states that she grew up in a home. She is currently , lives in the house. She has 4 daughters. MENTAL STATUS EXAM: General Appearance: Patient appears to be thin, older than stated age is alert, attempts to cooperate. Patient appears to have fair hygiene and grooming wearing hospital gown with poor eye contact. Behavior: Patient is calmly lying in bed without any agitated behavior. Times to cooperate. Speech: Patient's speech is fluent and nonpressured. Mood/Affect: Patient reports their mood is "depressed", affect is congruent Suicidality/Homicidality: Patient denies having any suicidal or homicidal ideation intent or plan. Perceptions: Patient denies any visual hallucinations and denies any auditory hallucinations Though content/process: There is no evidence of any delusional thought content and thought process is linear and goal-directed. Focused on her 's . Memory and concentration: AOX3, grossly intact for the purposes of this session. Can spell "WORLD" backwards Judgment and insight: Fair IMPRESSIONS: Major depressive disorder Generalized anxiety disorder Grief of loss of Nicotine dependence Cannabis use disorder mild PLAN: -At this time patient DOES NOT meet criteria for inpatient psychiatric admission. -Would recommend the following medication changes/additions: Added Lexapro 10 mg daily for mood/anxiety, Remeron 15 mg daily at bedtime for insomnia/mood/appetite. -size worker to provide patient with outpatient mental health/psychiatry resources for appropriate follow up upon discharge -Snowblower Mechanic spoke with patient about substance abuse and the harmful effects on medical and mental health, patient verbally understood and agreed. -Psychiatry will sign off at this time -Please contact with any questions. 05/15/22 16:10
[2022-05-15] MEDS: ESCITALOPRAM 10 MG TAB PO SCH (16:44)
--- NOTE | 2022-05-15 19:32 | P.PN ---
Subjective Progress Note Date: 05/15/22 57-year-old woman with history of depression, chronic alcohol use, tobacco use who presented to our emergency for seizure-like activity. The patient's sister stated that the patient does not have history of seizures but the patient has a stopped drinking alcohol on May 05 of this year cold turkey. And since possibly Wednesday she's been having seizure-like activity witnessed by her daughter who recently resides with her. It seems that the patient has history of heavy alcohol use on a daily basis but has adequate on May 05 of this year. Patient has had depression since the loss of her according to her sister. Some other workup in our facility during this hospital visit consisted of: TSH is 0.055 but the free T4 is 2.36 Vitamin B12 is 625 Serum Folate: 6.80 RBC folate is 385 Ammonia level is less than 9. Urinalysis is negative for urinary tract infection. Urine drug screen is positive for opiates, benzoyl and marijuana. Serum alcohol was less than 10. CT of the head is reported as no acute intracranial abnormality or gross space occupying lesion by this nonenhanced computed tomography scan. I personally reviewed the CT of the head and agree with the report. Routine EEG is abnormal. The excessive beta activity is likely due to medication effect (Ativan). Otherwise, there is no focal slowing, epileptiform discharges or seizure on the EEG. Objective - Vital Signs Vital signs: Vital Signs Temp 97.9 F 05/15/22 12:10 Pulse 83 05/15/22 12:11 Resp 16 05/15/22 12:10 BP 140/92 05/15/22 12:10 Pulse Ox 100 05/15/22 12:10 FiO2 Intake & Output 05/14/22 05/15/22 05/15/22 18:59 06:59 18:59 Intake Total 560 Output Total 400 Balance 160 Weight 44.452 kg Intake: Oral 560 Output: Urine 400 Other: Voiding Method Diaper Toilet # Voids 1 # Bowel Movements 1 - Exam Head exam: Present: atraumatic Eye exam: Present: normal appearance Neck exam: Present: normal inspection. Absent: meningismus Respiratory exam: Present: normal lung sounds bilaterally. Absent: respiratory distress Cardiovascular Exam: Present: regular rate, normal rhythm GI/Abdominal exam: Present: soft. Absent: tenderness Extremities exam: Absent: tenderness Back exam: Absent: tenderness Neurological exam: Present: altered Psychiatric exam: Present: agitated Skin exam: Present: warm, dry - Labs CBC & Chem 7: 05/14/22 09:33 05/14/22 09:33 Labs: Microbiology - Last 24 Hours (Table) 05/12/22 18:26 Blood Culture - Preliminary Blood No Growth after 48 hours Assessment and Plan Assessment: New onset seizure (seizure-like episode witnessed by daughter). Seems due to alcohol withdrawal. Stopped drinking alcohol since May 05 2022. Rule out true epileptic seizures. Encephalopathy of unknown etiology but possibly component of Wernicke-Korsakoff due to her alcohol use. Chronic alcohol use Tobacco use Depression Patient initial white blood cell is 3.62 thousand and repeat is 6.9. MCV is 106 and the repeated is 106. Sodium is 133, potassium 3.1. AST and ALT is within normal limits. Ammonia is within normal limits. Urinalysis is negative for urinary tract infection. Urine drug screen is positive for opiates, benzoyl and marijuana. Serum alcohol was less than 10. CT of the head is reported as no acute intracranial abnormality or gross space occupying lesion by this nonenhanced computed tomography scan. I personally reviewed the CT of the head and agree with the report. -- Patient is being followed by psychiatry and has been placed on Lexapro 10 mg daily for mood and anxiety, Remeron 15 mg daily at bedtime for insomnia, mood and appetite
[2022-05-15] MEDS ORDERED: MIRTAZAPINE 15 MG TAB PO SCH (21:00)
[2022-05-16] MEDS: GABAPENTIN 400 MG CAP PO SCH ×2 (04:09→11:39)
[2022-05-16] MEDS: MORPHINE SULFATE IR 15 MG TABLET PO SCH ×4 (04:10→17:24)
[2022-05-16 05:13] VITALS: RESP 18
[2022-05-16] MEDS: ZENPEP 40000 UNIT PO SCH ×3 (06:48→17:17)
[2022-05-16] MEDS: THIAMINE 100 MG TAB PO SCH (07:56)
[2022-05-16] MEDS: DIVALPROEX 500 MG TABLET.DR PO SCH (07:56)
[2022-05-16] MEDS: ALPRAZolam 0.25 MG TAB PO PRN (07:56)
[2022-05-16] MEDS: NICOTINE 21MG/24HR PATCH TRANSDERM SCH ×2 (07:56→07:57)
[2022-05-16] MEDS: ATORVASTATIN 10 MG TAB PO SCH (07:57)
[2022-05-16] MEDS: ESCITALOPRAM 10 MG TAB PO SCH (07:57)
[2022-05-16] MEDS: POTASSIUM CHLORIDE ER 20 MEQ TAB.ER PO SCH (07:57)
[2022-05-16] MEDS: PIPERACILLIN-TAZOBACTAM 3.375 GM in SODIUM CHLORIDE 0.9% 100 ML IVPB SCH ×2 (07:58→17:20)
[2022-05-16] MEDS: MORPHINE SULFATE ER 100 MG TABLET PO SCH (07:58)
[2022-05-16] MEDS: MULTIVITAMINS, THERA 1 EACH TAB PO SCH (07:59)
[2022-05-16] MEDS: IPRATROPIUM-ALBUTEROL 3 ML NEB INHALATION SCH ×3 (08:00→15:53)
[2022-05-16] MEDS: BUDESONIDE 0.5 MG/2 ML NEBU INHALATION SCH (08:00)
[2022-05-16] MEDS ORDERED: LORazepam 0.5 MG TAB PO PRN (08:13)
[2022-05-16] MEDS ORDERED: diphenhydrAMINE 25 MG CAP PO PRN (09:51)
[2022-05-16 10:15] LABS: Basophils # (A) 0.1 k/uL (0-0.2); Basophils % (A) 2 %; Eosinophils # (A) 0.3 k/uL (0-0.7); Eosinophils % (A) 4 %; HCT 44.8 % (34.0-46.0); HGB 14.6 gm/dL (11.4-16.0); Lymphocytes # (A) 2.9 k/uL (1.0-4.8); Lymphocytes % (A) 41 %; MCH 34.8 pg (25.0-35.0); MCHC 32.6 g/dL (31.0-37.0); MCV 106.9 fL (80.0-100.0); Macrocytosis Moderate; Mean Platelet Volume 7.7; Monocytes # (A) 0.3 k/uL (0-1.0); Monocytes % (A) 5 %; Neutrophils # (A) 3.3 k/uL (1.3-7.7); Neutrophils % (A) 47 %; Platelet Count 188 k/uL (150-450); RBC 4.19 m/uL (3.80-5.40); RDW 12.3 % (11.5-15.5); WBC 7.1 k/uL (3.8-10.6)
[2022-05-16 10:23] LABS: ALT 15 U/L (4-34); AST 24 U/L (14-36); African American GFR (CKD) >90 (>60 ml/min/1.73 sqM); Albumin 4.1 g/dL (3.5-5.0); Alkaline Phosphatase 63 U/L (38-126); Anion Gap 5 mmol/L; Blood Urea Nitrogen 4 mg/dL (7-17); Calcium 9.6 mg/dL (8.4-10.2); Carbon Dioxide 36 mmol/L (22-30); Chloride 96 mmol/L (98-107); Glucose 94 mg/dL (74-99); Magnesium 1.9 mg/dL (1.6-2.3); Non-African American GFR(CKD) >90 (>60 ml/min/1.73 sqM); Potassium 4.9 mmol/L (3.5-5.1); Sodium 137 mmol/L (137-145); Total Bilirubin 0.4 mg/dL (0.2-1.3); Total Protein 6.7 g/dL (6.3-8.2)
[2022-05-16 11:39] VITALS: BP 139/94; TEMP 98.2
[2022-05-16 15:56] VITALS: PULSE 84
[2022-05-18 14:12] LABS: Vit B1(Thiamine) 140 ug/L (38-122)
== END 2022-05-16 18:54 | disposition home or self-care (01) | DRG 100 ==
LOC: EC 14:23 → 3SCARD 16:42
PROVIDERS: ADMIT Hospitalist; ATTEND Hospitalist
PROC: HZ2ZZZZ Detoxification Services for Substance Abuse Treatment (ICD-10-PCS; 2022-05-12)
PROC: 4A10X4Z Monitoring of Central Nervous Electrical Activity, External Approach (ICD-10-PCS; principal; 2022-05-15)
DX: G40.909 Epilepsy, unspecified, not intractable, without status epilepticus (principal); J69.0 Pneumonitis due to inhalation of food and vomit; F10.239 Alcohol dependence with withdrawal, unspecified; K86.1 Other chronic pancreatitis; E51.2 Wernicke's encephalopathy; F41.1 Generalized anxiety disorder; D72.819 Decreased white blood cell count, unspecified; E87.6 Hypokalemia; F17.200 Nicotine dependence, unspecified, uncomplicated; M43.8X4 Other specified deforming dorsopathies, thoracic region; T42.4X5A Adverse effect of benzodiazepines, initial encounter; F32.A Depression, unspecified; G47.00 Insomnia, unspecified; J44.9 Chronic obstructive pulmonary disease, unspecified; Z79.899 Other long term (current) drug therapy; Z85.819 Personal history of malignant neoplasm of unspecified site of lip, oral cavity, and pharynx; Z86.73 Personal history of transient ischemic attack (TIA), and cerebral infarction without residual deficits; Z91.19 Patient's noncompliance with other medical treatment and regimen; Z91.041 Radiographic dye allergy status; Y90.0 Blood alcohol level of less than 20 mg/100 ml; X58.XXXA Exposure to other specified factors, initial encounter; Z88.8 Allergy status to other drugs, medicaments and biological substances
CPT/HCPCS: 36415; 70450; 70553; 71045; 71250; 80053; 80306; 80320; 81003; 82140; 82607; 82746; 82747; 83735; 84425; 84439; 84443; 84484; 85025; 85610; 85730; 87040; 93005; 94640; 94760; 95816; 96361; 96365; 96366; 96367; 96368; 96375; 99285

== ENCOUNTER 2023-06-04 13:04 | Emergency (ER) | payer OTHER ==
[2023-06-04 13:09] VITALS: RESP 18; TEMP 98.7
[2023-06-04] MEDS ORDERED: SODIUM CHLORIDE 0.9% 1,000 ML IV STA (13:17)
[2023-06-04] MEDS ORDERED: SODIUM CHLORIDE 0.9% 1,000 ML with MVI, ADULT NO.4 WITH VIT K 10 ML, THIAMINE 100 MG, F... IV ONE ×4 (13:40)
[2023-06-04] MEDS ORDERED: DIVALPROEX ER 500 MG TAB.ER.24H PO STA (14:01)
[2023-06-04] MEDS ORDERED: HYDROmorphone 0.5 MG/0.5 ML SYRINGE IVP STA (14:01)
[2023-06-04 14:09] LABS: Basophils % (A) 0 %; Eosinophils # (A) 0.1 k/uL (0-0.7); Eosinophils % (A) 1 %; HCT 48.4 % (34.0-46.0); Lymphocytes # (A) 2.5 k/uL (1.0-4.8); Lymphocytes % (A) 24 %; MCH 32.3 pg (25.0-35.0); MCHC 33.1 g/dL (31.0-37.0); MCV 97.4 fL (80.0-100.0); Mean Platelet Volume 8.1; Monocytes # (A) 0.4 k/uL (0-1.0); Monocytes % (A) 4 %; Neutrophils # (A) 7.2 k/uL (1.3-7.7); Neutrophils % (A) 70 %; Platelet Count 267 k/uL (150-450); RBC 4.97 m/uL (3.80-5.40); WBC 10.3 k/uL (3.8-10.6)
[2023-06-04] MEDS ORDERED: LORazepam 2 MG/ML INJ IV STA (14:17)
[2023-06-04] MEDS ORDERED: ACET/COD 300 MG/30 MG STARTER PACK 6 TAB BTL PO STA (14:24)
[2023-06-04 14:25] LABS: ALT 13 U/L (4-34); AST 20 U/L (14-36); African American GFR (CKD) >90 (>60 ml/min/1.73 sqM); Albumin 4.3 g/dL (3.5-5.0); Alcohol <10 mg/dL; Alkaline Phosphatase 122 U/L (38-126); Anion Gap 13 mmol/L; Blood Urea Nitrogen 26 mg/dL (7-17); Calcium 9.6 mg/dL (8.4-10.2); Carbon Dioxide 26 mmol/L (22-30); Chloride 100 mmol/L (98-107); Glucose 141 mg/dL (74-99); Lipase 33 U/L (23-300); Magnesium 2.2 mg/dL (1.6-2.3); Non-African American GFR(CKD) >90 (>60 ml/min/1.73 sqM); Potassium 4.3 mmol/L (3.5-5.1); Sodium 139 mmol/L (137-145); Total Bilirubin 0.8 mg/dL (0.2-1.3); Total Protein 7.5 g/dL (6.3-8.2)
--- NOTE | 2023-06-04 14:50 | ED ---
Alcohol HPI - General Chief Complaint: Alcohol Stated Complaint: Med withdraw Time Seen by Provider: 06/04/23 13:09 Source: patient, EMS Mode of arrival: EMS Limitations: no limitations - History of Present Illness Initial Comments: Patient is a 58 old female who presents to the emergency department seeking medication refill. Patient's daughters are at bedside and helped provide history. Patient has been unable to get her home medications refilled because she has u now unable to hold of her primary care provider. States she went into the office on and saw him and in the office on them but didn't. She has a list of about 20 medications she was requesting to be refilled. Patient has palpitations and intermittent muscle spasms. She denies chest pain, shortness of breath, nausea, vomiting. Patient does mention she took a "sip" of whiskey this morning. - Related Data Home Medications Medication Instructions Recorded Confirmed Albuterol Sulfate [Proair Hfa] 2 puff INHALATION RT-Q4H PRN 05/09/22 05/12/22 Atorvastatin [Lipitor] 10 mg PO DAILY 05/09/22 05/12/22 Budesonide 0.5 mg INHALATION RT-BID 05/09/22 05/12/22 Butalbital/Acetaminophen 1 tab PO Q4H PRN 05/09/22 05/12/22 [Butalbital/Acetaminophen 25-325] Ergocalciferol [Vitamin D2 (1250 1,250 mcg PO Q7D 05/09/22 05/12/22 Mcg = 23073 Iu)] Gabapentin 800 mg PO Q8H 05/09/22 05/12/22 LORazepam [Ativan] 2 mg PO Q4H PRN 05/09/22 05/12/22 Lipase/Protease/Amylase [Shanika Mason 2 cap PO BID PRN 05/09/22 05/12/22 40,000 Unit Capsule] Lipase/Protease/Amylase [Shanika Mason 2 cap PO TID-W/MEALS 05/09/22 05/12/22 40,000 Unit Capsule] Morphine Sulfate Ir [MSIR] 30 mg PO Q4HR 05/09/22 05/12/22 Morphine Sulfate [Morphine Sulfate 200 mg PO Q12H 05/09/22 05/12/22 ER] Ondansetron Odt [Zofran ODT] 4 mg PO Q4H PRN 05/09/22 05/12/22 Previous Rx's Medication Instructions Recorded Divalproex [Depakote] 500 mg PO BID 30 Days #30 tab 05/16/22 Escitalopram [Lexapro] 10 mg PO DAILY 30 Days #30 tab 05/16/22 Mirtazapine [Remeron] 15 mg PO HS 30 Days #30 tab 05/16/22 Multivitamins, Thera [Multivitamin 1 each PO DAILY@1200 tab 05/16/22 (formulary)] Potassium Chloride ER [K-Dur 20] 40 meq PO DAILY 30 Days #30 tab 05/16/22 Thiamine [Vitamin B-1] 100 mg PO DAILY@1200 tab 05/16/22 Divalproex [Depakote] 500 mg PO BID #60 tab 06/04/23 LORazepam [Ativan] 0.5 mg PO BID 3 Days #6 tab 06/04/23 Potassium Chloride ER [K-Dur 20] 20 meq PO BID #60 tab 06/04/23 Allergies Allergy/AdvReac Type Severity Reaction Status Date / Time Iodinated Contrast Media Allergy Unknown Verified 05/20/23 22:10 duloxetine [From Cymbalta] AdvReac homicidal Verified 05/20/23 22:10 fluticasone furoate AdvReac Swelling Verified 05/20/23 22:10 [From Breo Ellipta] NSAIDS (Non-Steroidal AdvReac Nausea & Verified 05/20/23 22:10 Anti-Inflamma Vomiting tiotropium AdvReac Swelling Verified 05/20/23 22:10 [From Spiriva with HandiHaler] trazodone AdvReac HOMICIDAL Verified 05/20/23 22:10 vilanterol AdvReac Swelling Verified 05/20/23 22:10 [From Breo Ellipta] antidepresents Allergy Unknown Uncoded 05/20/23 22:10 Review of Systems ROS Statement: Those systems with pertinent positive or pertinent negative responses have been documented in the HPI. ROS Other: All systems not noted in ROS Statement are negative. Past Medical History Past Medical History: Asthma, Cancer, COPD, Osteoarthritis (OA) Additional Past Medical History / Comment(s): Throat cancer, chronic pancre atitis, TIAs History of Any Multi-Drug Resistant Organisms: None Reported Past Surgical History: Orthopedic Surgery Additional Past Surgical History / Comment(s): Throat surgery, "multiple stents in the pancreas" Past Psychological History: Anxiety Smoking Status: Current every day smoker Past Alcohol Use History: Abuse Past Drug Use History: None Reported - Past Family History Mother Family Medical History: Cancer, CVA/TIA Additional Family Medical History / Comment(s): Brain tumor, General Exam Limitations: no limitations General appearance: alert, in no apparent distress Head exam: Present: atraumatic, normocephalic, normal inspection Eye exam: Present: normal appearance, PERRL, EOMI. Absent: scleral icterus, conjunctival injection, periorbital swelling Cardiovascular Exam: Present: normal rhythm, tachycardia, normal heart sounds. Absent: regular rate, systolic murmur, diastolic murmur, rubs, gallop, clicks GI/Abdominal exam: Present: soft, normal bowel sounds. Absent: distended, tenderness, guarding, rebound, rigid Neurological exam: Present: alert, oriented X3, CN II-XII intact Psychiatric exam: Present: normal affect, normal mood Skin exam: Present: warm, dry, intact, normal color. Absent: rash Course Vital Signs 06/04/23 06/04/23 13:06 15:26 Temperature 98.7 F Pulse Rate 77 80 Respiratory 18 18 Rate Blood Pressure 110/88 122/70 O2 Sat by Pulse 99 99 Oximetry Medical Decision Making - Medical Decision Making Was pt. sent in by a medical professional or institution (Dr. PA, CHEMISTRY LABORATORY TECHNICIAN, urgent care, hospital, or retirement...) When possible be specific @ -No Did you speak to anyone other than the patient for history (EMS, parent, family, police, friend...)? What history was obtained from this source @ -No Did you review nursing and triage notes (agree or disagree)? Why? @ -I reviewed and agree with nursing and triage notes Were old charts reviewed (outside hosp., previous admission, EMS record, old EKG, old radiological studies, urgent care reports/EKG's, retirement records)? Report findings @ -No old charts were reviewed Differential Diagnosis (chest pain, altered mental status, abdominal pain women, abdominal pain men, vaginal bleeding, weakness, fever, dyspnea, syncope, hea dache, dizziness, GI bleed, back pain, seizure, CVA, palpatations, mental health)? @ -Differential Palpitations Ventricular arrhythmias, atrial arrhythmias, myocardial infarction, anemia, thyrotoxicosis, electrolyte imbalance, hypokalemia, pulmonary embolism, pulmonary disease, drugs, alcohol, anxiety, stress.... This is not meant to be an all-inclusive list. EKG interpreted by me (3pts min.). @ -As above X-rays interpreted by me (1pt min.). @ -None done CT interpreted by me (1pt min.). @ -None done U/S interpreted by me (1pt. min.). @ -None done What testing was considered but not performed or refused? (CT, X-rays, U/S, labs)? Why? @ -None What meds were considered but not given or refused? Why? @ -None Did you discuss the management of the patient with other professionals (professionals i.e. , PA, CHEMISTRY LABORATORY TECHNICIAN, lab, RT, psych nurse, social science research assistant, auxiliary powerplant operator, teacher, chief diversity officer, director case management)? Give summary @ -No Was smoking cessation discussed for >3mins.? @ -No Was critical care preformed (if so, how long)? @ -No Were there social determinants of health that impacted care today? How? (Homelessness, low income, unemployed, alcoholism, drug addiction, transportation, low edu. Level, literacy, decrease access to med. care, senior living, rehab)? @ -No Was there de-escalation of care discussed even if they declined (Discuss DNR or withdrawal of care, Hospice)? DNR status @ -No What co-morbidities impacted this encounter? (DM, HTN, Smoking, COPD, CAD, Cancer, CVA, ARF, Chemo, Hep., AIDS, mental health diagnosis, sleep apnea, morbid obesity)? @ -seizure disorder, chronic pain Was patient admitted / discharged? Hospital course, mention meds given and route, prescriptions, significant lab abnormalities, going to OR and other pertinent info. @ -Patient and family requesting refill of home medications including morphine, Ativan. She is well-appearing and in no apparent distress. A&O 4. Vitals within normal limits. I informed patient and family I am unable to prescribe controlled substances as an acute care provider. Attempted to contact Dr. Giles no success. Patient does not appear to be in withdrawal. She received 1 dose of Dilaudid and Ativan in the emergency department. She was also given Depakote which she has not taken since May 29. She is very concerned with pain management at home for chronic pain. She will be discharged with Tylenol 3 starter pack as well as a short course of Ativan due to potential of benzodiazepine withdrawal. I will also prescribe potassium and depakote. Undiagnosed new problem with uncertain prognosis? @ -No Drug Therapy requiring intensive monitoring for toxicity (Heparin, Nitro, Insulin, Cardizem)? @ -No Were any procedures done? @ -[No] Diagnosis/symptom? @ -Encounter for medication refill, palpitations, chronic pain Acute, or Chronic, or Acute on Chronic? @ -acute Uncomplicated (without systemic symptoms) or Complicated (systemic symptoms)? @ uncomplicated Side effects of treatment? @ -[No] Exacerbation, Progression, or Severe Exacerbation? @ -[No] Poses a threat to life or bodily function? How? (Chest pain, [place], [place], pneumonia, PE, COPD, DKA, ARF, appy, cholecystitis, CVA, Diverticulitis, Homicidal, Suicidal, threat to staff... and all critical care pts) @ -No Dr. Ruvalcaba is my attending - Lab Data Result diagrams: 06/04/23 13:30 06/04/23 13:30 Lab Results 06/04/23 06/04/23 Range/Units 13:30 13:30 WBC 10.3 (3.8-10.6) k/uL RBC 4.97 (3.80-5.40) m/uL Hgb 16.0 (11.4-16.0) gm/dL Hct 48.4 H (34.0-46.0) % MCV 97.4 (80.0-100.0) fL MCH 32.3 (25.0-35.0) pg MCHC 33.1 (31.0-37.0) g/dL RDW 13.0 (11.5-15.5) % Plt Count 267 (150-450) k/uL MPV 8.1 Neutrophils % 70 % Lymphocytes % 24 % Monocytes % 4 % Eosinophils % 1 % Basophils % 0 % Neutrophils # 7.2 (1.3-7.7) k/uL Lymphocytes # 2.5 (1.0-4.8) k/uL Monocytes # 0.4 (0-1.0) k/uL Eosinophils # 0.1 (0-0.7) k/uL Basophils # 0.0 (0-0.2) k/uL Sodium 139 (137-145) mmol/L Potassium 4.3 (3.5-5.1) mmol/L Chloride 100 (98-107) mmol/L Carbon Dioxide 26 (22-30) mmol/L Anion Gap 13 mmol/L BUN 26 H (7-17) mg/dL Creatinine 0.45 L (0.52-1.04) mg/dL Est GFR (CKD-EPI)AfAm >90 (>60 ml/min/1.73 sqM) Est GFR (CKD-EPI)NonAf >90 (>60 ml/min/1.73 sqM) Glucose 141 H (74-99) mg/dL Calcium 9.6 (8.4-10.2) mg/dL Magnesium 2.2 (1.6-2.3) mg/dL Total Bilirubin 0.8 (0.2-1.3) mg/dL AST 20 (14-36) U/L ALT 13 (4-34) U/L Alkaline Phosphatase 122 (38-126) U/L Total Protein 7.5 (6.3-8.2) g/dL Albumin 4.3 (3.5-5.0) g/dL Lipase 33 (23-300) U/L Valproic Acid 15.4 ug/mL Serum Alcohol <10 mg/dL Disposition Clinical Impression: Encounter for medication refill, Chronic pain, Palpitations Disposition: HOME SELF-CARE Condition: Good Instructions (If sedation given, give patient instructions): Opioid Withdrawal (ED) Additional Instructions: Take medication as directed. Please follow-up with your primary care provider in 1-2 days. Return to the emergency department if you experience new, concerning, or worsening symptoms. Prescriptions: LORazepam [Ativan] 0.5 mg PO BID 3 Days #6 tab Divalproex [Depakote] 500 mg PO BID #60 tab Potassium Chloride ER [K-Dur 20] 20 meq PO BID #60 tab Is patient prescribed a controlled substance at d/c from ED?: No Referrals: Jan Giles III, MD [Primary Care Provider] - 1-2 days
[2023-06-04 15:26] VITALS: BP 122/70; PULSE 80
[2023-06-04 18:25] LABS: Valproic Acid (Depakene) 15.4 ug/mL
== END 2023-06-04 15:26 | disposition home or self-care (01) ==
LOC: EC 13:04
DX: G89.29 Other chronic pain (principal); R00.2 Palpitations; Z76.0 Encounter for issue of repeat prescription; J44.9 Chronic obstructive pulmonary disease, unspecified; F41.9 Anxiety disorder, unspecified; M19.90 Unspecified osteoarthritis, unspecified site; F17.200 Nicotine dependence, unspecified, uncomplicated; Z79.899 Other long term (current) drug therapy; Z88.6 Allergy status to analgesic agent; Z88.8 Allergy status to other drugs, medicaments and biological substances; Z88.2 Allergy status to sulfonamides
CPT/HCPCS: 36415; 80164; 80053; 83690; 83735; 85025; 99285; 96374; 96375; 96361 ×2; G0480; J2060; J3411; J1170; 80320